=== PATIENT | female | born 1990 | race Caucasian/White ===

== ENCOUNTER 2017-01-31 17:14 | Emergency (ER) | payer MEDICAID, OTHER, SELFPAY ==
[~2017-01-31] VITALS: Ht 157.5 cm; Wt 98.8 kg
[2017-01-31 17:17] VITALS: BP 117/89
[2017-01-31] MEDS ORDERED: BACITRACIN ZINC OINT 500U/GM, 0.9 GM ONE (18:50)
== END 2017-01-31 19:12 | disposition home or self-care (01) ==
LOC: ED 19:05
DX: L03.011 Cellulitis of right finger (principal)
CPT/HCPCS: 10160

== ENCOUNTER 2017-04-20 13:47 | Emergency (ER) | payer MEDICAID ==
[~2017-04-20] VITALS: Ht 157.5 cm; Wt 103.6 kg
[2017-04-20 13:49] VITALS: BP 115/76
[2017-04-20] MEDS ORDERED: CITA40TA5 PO (14:42)
== END 2017-04-20 15:05 | disposition home or self-care (01) ==
LOC: ED 14:45
DX: J02.0 Streptococcal pharyngitis (principal)
CPT/HCPCS: 99283

== ENCOUNTER 2017-05-21 05:47 | Emergency (ER) | payer MEDICAID ==
[~2017-05-21] VITALS: Ht 157.5 cm; Wt 100.6 kg
[~2017-05-21 05:47] MED LIST: CITA40TA5 PO
[2017-05-21] MEDS ORDERED: PROCHLORPERAZINE 5 MG/ML, 2ML ONE (06:24)
[2017-05-21] MEDS ORDERED: MECLIZINE CHEWABLE 25 MG TAB ONE (06:24)
[2017-05-21] MEDS ORDERED: DIPHENHYDRAMINE 50 MG/ML, 1ML ONE (06:24)
[2017-05-21] MEDS ORDERED: MECLIZINE CHEWABLE 25 MG TAB PO ONE (06:30)
[2017-05-21] MEDS ORDERED: SODIUM CHLORIDE FLUSH 10ML SYR IVF ONE (06:30)
[2017-05-21] MEDS ORDERED: SODIUM CHLORIDE 0.9% 1,000ML IVBOLUS ONE (06:30)
[2017-05-21] MEDS ORDERED: PROCHLORPERAZINE 5 MG/ML, 2ML IVPush ONE (06:30)
[2017-05-21] MEDS ORDERED: DIPHENHYDRAMINE 50 MG/ML, 1ML IVPush ONE (06:30)
[2017-05-21 07:07] LABS: HEMATOCRIT 38.2 % (34.6-47.8); HEMOGLOBIN 12.8 g/dL (11.7-16.4); WHITE BLOOD COUNT 10.2 x10^3/uL (3.4-10)
[2017-05-21 07:14] LABS: ASPARTATE AMINO TRANSFERASE 24 U/L (15-37); BLOOD UREA NITROGEN 10 mg/dL (7-18)
[2017-05-21 08:35] VITALS: BP 116/71
== END 2017-05-21 08:37 | disposition home or self-care (01) ==
LOC: ED 06:59
DX: R42 Dizziness and giddiness (principal); R51 Headache; J32.2 Chronic ethmoidal sinusitis; J45.909 Unspecified asthma, uncomplicated
CPT/HCPCS: 36415; 70450; 80053; 82375; 84703; 85025; 93005; 96361; 96374; 96375; 99285; J0780; J1200; J7030

== ENCOUNTER 2017-07-21 16:52 | Emergency (ER) | payer MEDICAID, OTHER ==
[~2017-07-21] VITALS: Ht 157.5 cm; Wt 94.7 kg
[2017-07-21 17:39] LABS: HEMATOCRIT 40.3 % (34.6-47.8); HEMOGLOBIN 13.4 g/dL (11.7-16.4); WHITE BLOOD COUNT 11.7 x10^3/uL (3.4-10)
[2017-07-21 17:47] LABS: ASPARTATE AMINO TRANSFERASE 19 U/L (15-37); BLOOD UREA NITROGEN 12 mg/dL (7-18)
[2017-07-21 17:52] LABS: PATH.CAST-FLAG NOT PRESENT; SPERM-FLAG NOT PRESENT; SRC-FLAG NOT PRESENT; XTAL-FLAG NOT PRESENT; YLC-FLAG NOT PRESENT
[2017-07-21] MEDS ORDERED: SODIUM CHLORIDE 0.9% 1,000ML IVBOLUS ONE (18:00)
[2017-07-21] MEDS ORDERED: ONDANSETRON 2MG/ML, 2ML IVPush ONE (18:00)
[2017-07-21] MEDS ORDERED: SODIUM CHLORIDE 0.9% 1,000 ML IV ONE (18:00)
[2017-07-21] MEDS ORDERED: ONDANSETRON 2MG/ML, 2ML ONE (18:15)
[2017-07-21] MEDS ORDERED: SODIUM CHLORIDE FLUSH 10ML SYR IVF ONE (18:30)
[2017-07-21 19:27] VITALS: BP 137/79
== END 2017-07-21 19:29 | disposition home or self-care (01) ==
LOC: ED 17:37
DX: A08.4 Viral intestinal infection, unspecified (principal)
CPT/HCPCS: 36415; 80053; 81001; 84703; 85025; 87086; 96360; 99284; J7030

== ENCOUNTER 2018-02-20 17:25 | Emergency (ER) | payer MEDICAID ==
[~2018-02-20] VITALS: Ht 157.5 cm; Wt 108.2 kg
[2018-02-20 17:29] VITALS: BP 117/79
== END 2018-02-20 18:53 | disposition home or self-care (01) ==
LOC: ED 18:30
DX: B34.9 Viral infection, unspecified (principal)
CPT/HCPCS: 71046; 99284